=== PATIENT | female | born 1990 | race Caucasian/White ===

== ENCOUNTER 2017-06-06 05:22 | Day surgery (SDC) | payer OTHER ==
[2017-06-02 13:58] VITALS: BMI 29.2
[2017-06-06] MEDS ORDERED: ONDANSETRON 4 MG/2 ML VIAL IVPUSH PRN (08:29)
[2017-06-06] MEDS ORDERED: oxyCODONE HCL 5 MG TABLET PO PRN (08:29)
[2017-06-06] MEDS ORDERED: LACTATED RINGERS SOLUTION 1,000 ML IV SCH (08:30)
--- NOTE | 2017-06-06 09:57 | HP ---
Admitting History and Physical - Admission History of Present Illness: 26 yo with history of ovarian cyst for laparoscopic cystectomy Patient initially diagnosed with right ovarian cyst by her inside sales agent [facility]. Patient reports earlier this year noted to have abdominal pain and was seen by inside sales agent who again confirmed ovarian cyst. She presented to our office for surgical consultation. She underwent an ultrasound which showed a 3.7 cm right ovarian cyst, favor dermoid cyst. She desired surgical intervention History Source: Patient - Past Medical History Cardiovascular: No: HTN Pulmonary: No: Asthma Gastrointestinal: Yes: Other (H. Pylori) ...LMP: 05/16/17 ...: No - Past Surgical History Past Surgical History: Yes: - Smoking History Smoking history: Never smoked - Alcohol/Substance Use Hx Alcohol Use: No Home Medications - Allergies Allergies/Adverse Reactions: Allergies Allergy/AdvReac Type Severity Reaction Status Date / Time Fish Containing Products Allergy Rash Verified 06/06/17 09:34 Penicillins Allergy Rash Verified 06/06/17 09:34 - Home Medications Home Medications: Ambulatory Orders NK [No Known Home Medication] 06/02/17 Family Disease History - Family Disease History Family History: Denies Review of Systems - Review of Systems Constitutional: reports: No Symptoms Neck: reports: No Symptoms Cardiovascular: reports: No Symptoms Gastrointestinal: reports: No Symptoms Genitourinary: reports: No Symptoms Musculoskeletal: reports: No Symptoms Neurological: reports: No Symptoms Hematology/Lymphatic: reports: No Symptoms Psychiatric: reports: No Symptoms Physical Examination Vital Signs: Vital Signs Temperature 97.7 F 06/06/17 09:29 Pulse Rate 65 06/06/17 09:29 Respiratory Rate 20 06/06/17 09:29 Blood Pressure 93/53 06/06/17 09:29 O2 Sat by Pulse Oximetry (%) 99 06/06/17 09:28 Constitutional: Yes: Well Nourished, No Distress, Calm Cardiovascular: Yes: Regular Rate and Rhythm Respiratory: Yes: Regular, CTA Bilaterally Gastrointestinal: Yes: Normal Bowel Sounds, Soft Neurological: Yes: Alert, Oriented ...Motor Strength: WNL Psychiatric: Yes: Alert, Oriented Imaging - Results Ultrasound: Report Reviewed, Image Reviewed Assessment/Plan 26 yo with hx/o right dermoid cyst for removal 1. Consents reviewed and signed. Reviewed risks of laparscopic ovarian cystectomy Given cyst size, may be at risk of oophorectomy Also reviewed surgical risk increased given hx/o delivery Reviewed risks of procedure with patient, including but not limited to infection , bleeding requiring transfusion, damage to surrounding organs such as the bowel , bladder or ureters and their associated repair. 2. SCDs for DVT Prophylaxis 3. Clindamycin for antibiotic prophylaxis 4. Will proceed to OR
[2017-06-06] MEDS ORDERED: MIDAZOLAM HCL 2 MG/2 ML SINGLE DOSE VIAL ONE (10:21)
[2017-06-06] MEDS ORDERED: ROCURONIUM BROMIDE 50 MG/5 ML VIAL ONE (10:21)
[2017-06-06] MEDS ORDERED: CLINDAMYCIN PHOSPHATE 600 MG/4 ML VIAL IVPB ONE (11:04)
[2017-06-06] MEDS ORDERED: fentaNYL CITRATE 250 MCG/5 ML VIAL ONE (11:19)
[2017-06-06] MEDS ORDERED: GLYCOPYRROLATE 0.2 MG/1 ML VIAL ONE (12:23)
[2017-06-06] MEDS ORDERED: NEOSTIGMINE METHYLSULFATE 0.5 MG/ML - 10 ML MDV ONE (12:24)
--- NOTE | 2017-06-06 12:40 | OP ---
Operative Note - Note: Operative Date: 06/06/17 Pre-Operative Diagnosis: right ovarian cyst, pelvic pain Operation: laparoscopic right ovarian cystectomy, lysis of adhesions, peritoneal biospy Findings: 3 cm smooth walled cyst, likely dermoid, dense adhesions, uterus to anterior abdominal wall, implants on serosa, suspicious of endometriosis Post-Operative Diagnosis: Same as Pre-op Surgeon: Cheryl Penn Associate Professor Of Art: Thanh Nguyen Anesthesia: General Specimens Removed: 1. pelvic washing; 2. right deroimd cyst; 3. peritoneal biopsy Estimated Blood Loss (mls): 20 Drains, Volume Out (mls): 300 (urine output) Fluid Volume Replaced (mls): 1,200 Operative Report Dictated: Yes
[2017-06-06] MEDS ORDERED: oxyCODONE HCL 5 MG TABLET ONE (15:11)
[2017-06-06 15:54] VITALS: TEMP 98.6
[2017-06-06 17:11] VITALS: BP 108/56; PULSE 76
--- NOTE | 2017-06-06 22:00 | OP ---
DATE OF OPERATION: 06/06/2017 ATTENDING PHYSICIAN RESPONSIBLE FOR SIGNING REPORT: Cheryl Penn MD PREOPERATIVE DIAGNOSES: Right ovarian cyst, pelvic pain. POSTOPERATIVE DIAGNOSES: Right ovarian cyst, pelvic pain. FINDING: A 3-cm, smooth-walled, right dermoid ovarian cyst; severe dense adhesions from the uterus to the anterior abdominal wall; implants on serosa suspicious of endometriosis. SURGEON: Cheryl Penn MD MERCERIZER MACHINE OPERATOR: Thanh Nguyen MD ANESTHESIA: General. SPECIMENS REMOVED: Pelvic washings, right dermal cyst, and peritoneal biopsy. ESTIMATED BLOOD LOSS: 20. URINE OUTPUT: 300. FLUIDS GIVEN: 1200. INDICATION: Patient is a 26-year-old with history of pelvic pain. She was found to have a right ovarian cyst on CT and confirmed on ultrasound. We discussed options including observation and surgical intervention. She desires surgical managment. She was counseled regarding risks, benefits, alternatives, and complications of procedure including infection, bleeding, damage to surrounding organs such as bowel, bladder, and ureters. She expressed understanding, was brought to the operating room. DESCRIPTION OF PROCEDURE: When anesthesia was found to be adequate, patient was prepped and draped in normal sterile fashion, placed in dorsal lithotomy position using Florian stirrups. A HUMI uterine manipulator was placed into the patient's uterus, and a Siegel catheter was placed to gravity. Attention was brought to the abdomen. A 5-mm incision was made with a knife, and a 5-mm laparoscope was placed under direct visualization. The pneumoperitoneum was achieved using carbon dioxide gas. At this point in time, severe midline dense adhesions were noted from the uterus to the anterior abdominal wall. Two 5-mm laparoscopic trocars were placed on the right side of the abdomen under direct visualization, and the peritoneal adhesions were taken down using the LigaSure. Attention was brought to the left lower quadrant. A 10-mm trocar was placed under direct visualization. Pelvic washings were obtained. The right ovary was examined, and a smooth-walled cyst was noted and removed. The cyst was entered during dissection, and sebaceous material and hair were noted. The cyst was resected and placed in the Endo Catch bag and removed from the abdominal cavity. Copious irrigation was performed. At this point in time, the abdomen was re-examined. All pedicles were found to be hemostatic. FloSeal was placed in the ovarian cyst bed, and a peritoneal biopsy was done with laparoscopic scissors and sent to Pathology. Good hemostasis was noted. All instruments were removed from the patient's abdomen. The left 10-mm trocar site was closed using 0 Vicryl using Kye-Nato device. Pneumoperitoneum was released. Skin was closed using 4-0 Biosyn. The patient was awoken from anesthesia and brought to recovery room in stable condition. Oj [id number] MTDD
--- NOTE | 2017-06-07 15:49 | PATH ---
Cytology Non-Gynecological Report Patient Name: BROOKLYN GARRIDO Med. Rec. #: [id number] /Age/Gender: 1990 (Age: 26) / F Account: [id number] Location: [facility] Taken: 06/06/2017 Received: 06/06/2017 Reported: 06/07/2017 Physicians: Cheryl Penn Specimen(s) Received PELVIC WASHINGS Clinical History Dermoid cyst Final Diagnosis PELVIC WASHING FOR CYTOLOGY: SATISFACTORY FOR EVALUATION. NO MALIGNANT CELLS IDENTIFIED. MESOTHELIAL CELLS IN A HEMORRHAGIC BACKGROUND WITH SCATTERED INFLAMMATORY CELLS PRESENT. Comment: See concurrent biopsy ([id number]). Electronically Signed Diana Mckinney M.D. Gross Description Approximately 25 cc of bloody fluid received fixed in 50% alcohol. Two cytofunnels and one cellblock prepared.
--- NOTE | 2017-06-09 14:30 | PATH ---
Surgical Pathology Report Patient Name: BROOKLYN GARRIDO Med. Rec. #: [id number] /Age/Gender: 1990 (Age: 26) / F Account: [id number] Location: [facility] Taken: 06/06/2017 Received: 06/06/2017 Reported: 06/09/2017 Physicians: Cheryl Penn Specimen(s) Received A: RIGHT DERMOID CYST B: BX SEROSA Clinical History Right side ovarian cyst Final Diagnosis A. OVARY, RIGHT, DERMOID CYST, LAPAROSCOPIC DERMOID CYSTECTOMY: MATURE CYSTIC TERATOMA, 3.3 CM. B. SEROSA, BIOPSY: FIBROMEMBRANOUS AND ADIPOSE TISSUE WITH FOCAL ENDOMETRIOSIS. SEE COMMENT. Comment: Immunohistochemical stain performed at [place], [place] ([id number]) and interpreted at [facility] for CD10 was utilized to evaluate this case. See concurrent cytology ([id number]). Electronically Signed Diana Mckinney M.D. Gross Description A. Received in formalin labeled "dermoid cyst," is a 3.3 x 2.2 x 1.1 cm intact cyst. The outer surface is recinos and smooth. Sectioning reveals recinos sebaceous material and hair. Mold Sheet Cleaner sections are submitted in 3 cassettes. B. Received in formalin labeled "biopsy of serosa," is a 0.6 x 0.4 x 0.2 cm recinos, irregular portion of soft tissue. The specimen is submitted in toto in one cassette. 06/06/201706/06/2017
== END 2017-06-06 17:13 | disposition home or self-care (01) ==
LOC: JASU-SURG 05:22
PROVIDERS: ATTEND Obstetrics & Gynecology
PROC: 0UB04ZZ Excision of Right Ovary, Percutaneous Endoscopic Approach (ICD-10-PCS; principal; 2017-06-06 10:00)
DX: N83.291 Other ovarian cyst, right side (principal); N73.6 Female pelvic peritoneal adhesions (postinfective)
CPT/HCPCS: 36415; 84703; 86850; 86900; 86901; 88108; 88305-TC; 88342-TC